=== PATIENT | female | born 1985 | race Caucasian/White ===

== ENCOUNTER 2021-11-26 09:23 | Outpatient (CLI) | payer OTHER, SELFPAY ==
--- NOTE | 2021-11-26 14:09 | P.LACCB_ITS ---
Consult Note - Mom Date of Visit Date of visit: 11/26/21 child welfare consultant: Mitzi Kramer Visit Code: Visit Patient's Information Phone number: [phone] : 3 Para: 3 Mother's Medical History: GHTN Delivery Information Delivery type: Vaginal Weeks Gestation: 37.1 Gestational Age: SGA Weight: 1.871 kg Baby's Information Baby's Age at Visit: 7 weeks Baby's Provider or Clinic: Dr. Lennon Jaundice: No Reason for Consult Reason for Consult: concern for clicking with latch Past Experience Past Experience: Yes (nursed her two older children) Current Frequency of Day Feedings: every 2 - 3 hours around the clock Both Breasts: Yes Suck: better with the nipple shield Latch: fairly wide Pumping Pumping: Yes (mom is pumping after every feeding) Quantity Pumped: 2 - 4 oz total each time Supplementing EMB Supplement: Yes (POC are supplementing with about 70 ml fortified EBM BID) Formula Supplement: No Baby Elimination Number of Wet Diapers a Day: 6 or more Number of BM a Day: at least 3 Breast/Nipple Condition Breast Information: WNL Engorgement: No Maternal Nipple Condition - Left: Common Nipple Maternal Nipple Condition - Right: Common Nipple Sore Nipples: No Onsite Pre-Feed weight: 3.312 kg Post-Feed weight: 3.38 kg Milk Transferred (mL): 68 Pre-Nursing Left Nipple: Within Normal Limits Pre-Nursing Right Nipple: Within Normal Limits Post-Nursing Left Nipple: Within Normal Limits Post-Nursing Right Nipple: Within Normal Limits Assessments/Interventions Assessments/Interventions: Met with mom and this now 7 week old ex early term baby for consult.? Mom is concerned about the latch b/c baby makes a clicking sound usually throughout the feeding (also makes this sound with the bottle).? She was induced at 37 weeks d/t dx of IUGR and baby spent a few weeks in the special care nursery at [facility].? Mom states she had been nursing every 2 - 3 hours with nipple shield and supplementing with 70 ml fortified breast milk after every feeding up until about 7 - 10 days ago.? Baby is now nursing without the shield and POC are only supplementing BID with fortified breast milk.? Mom states once baby started latching without the shield she seemed to get more milk b/c they would offer the EBM and baby either refused it or spit it up.? Breasts WNL- symmetrical with rounded lower quadrants, intramammary distance is WNL.? Nipples are everted and don't flatten or retract with compression; no damage noted. Baby has gained 35 grams/day since her last visit on 11/13/21 and is between the 2nd and 5th percentile on the growth chart.? Per mom she has equal ROM when turning her head and moving her extremities.? She denies any trauma like a cephalohematoma or caput.? Baby has a fairly strong suck on a finger; her tongue extends past the gum line and has good lateral movement.? Her lower frenulum may be a little anterior? Mom latched baby to both sides and the latch appeared deep, mom was comfortable.? Clicking was heard after a few suckles but mom denied any pain.? She does have a faster let-down, but the clicking didn't improve/resolve when she tried to express a little milk off before latching.? Also no improvement when mom tried different positions.? Baby nursed about 20 minutes and transferred 68 ml.? As mom was getting her dressed she started to act hungry again so mom put her back on the left side and baby nursed 5 - 7 more minutes but was not re-weighed. Plan: 1. Continue to nurse ALD, offering both sides at each feeding- don't let her go past three hours for now (baby has a 2 month WCC next week and this can be re- evaluated at that time).? Suggested that as baby is transferring the same amount she takes from a bottle, her weight gain has been WNL, and mom is not in pain there's really no need to worry about the clicking.? 2. Continue to supplement with fortified EBM BID- can also be re-evaluated at PCP visit. 3. OK to stop pumping after every feeding.? Suggested she reduce by one pumping session every 2 - 3 days until she's pumping 2 - 3 times/day. 4. Will f/u with her at [facility] on 12/01/21. ?
== END 2021-11-26 09:24 | disposition home or self-care (01) ==
PROVIDERS: PCP Family Medicine; Visit Provider Family Medicine
DX: Z39.1 Encounter for care and examination of lactating mother (principal)
CPT/HCPCS: 99211

== ENCOUNTER 2023-07-01 05:48 | Inpatient (IN) | payer OTHER, SELFPAY ==
[2023-07-01] VITALS (22 sets, daily range): BP systolic 121–161; BP diastolic 76–92; PULSE 64–86; RESP 16–18; TEMP 36.4–36.7; BMI 34.9
[2023-07-01] MEDS: AMPICILLIN 2 GM in 0.9 % SODIUM CHLORIDE Mini-bag 100 ML IVPB (06:09)
[2023-07-01 06:56] LABS: Basophils Absolute Auto 0.01 K/uL (0.00-0.30); Basophils Percent Auto 0.1 % (0.0-3.0); Eosinophils Absolute Auto 0.04 K/uL (0.00-0.50); Eosinophils Percent Auto 0.4 % (0.0-7.0); Hematocrit 37.5 % (33.0-51.0); Hemoglobin* 12.5 gm/dL (12.0-16.0); Immature Granulocytes Abs Auto 0.03 K/uL (0.00-0.30); Immature Granulocytes Pct Auto 0.3 %; Lymphocytes Percent Auto 13.4 % (20-44); Mean Corpuscular HGB Conc 33 gm/dL (32-36); Mean Corpuscular Hemoglobin 33 pg (26-34); Mean Corpuscular Volume 100 fL (80-100); Monocytes Percent Auto 4.3 % (0.0-11.0); Neutrophils Percent Auto 81.5 % (42.0-72.0); Platelet Count* 142 K/uL (140-440); Red Blood Count 3.77 m/uL (4.00-5.20); White Blood Count* 9.63 K/uL (4.50-11.00)
[2023-07-01 07:11] LABS: Slide Review Reflex No
[2023-07-01] MEDS: LACTATED RINGERS 1000 ML 1,000 ML 125 ML IV (09:25)
[2023-07-01] MEDS: OXYTOCIN 30 unit/500 ML in NS 30 UNIT/500 ML BAG IVPB (09:26)
[2023-07-01] MEDS: AMPICILLIN 1 GM in 0.9 % SODIUM CHLORIDE Mini-bag 100 ML IVPB ×2 (10:44→14:50)
--- NOTE | 2023-07-01 14:11 | P.OBHP_ITS ---
OB - H&P: HPI Labor/Induction History of Present Illness Time Seen by Provider: 06:50 Date Seen: 07/01/23 Chief Complaint: The patient is a 38 year old 5 para 3 at 39w1d weeks gestation by 6wk US not c/w LMP, who presents for induction due to chronic stage 1 hypertension. Chief complaint: IOL- Medical : 5 Para: 3 Indications for induction: maternal hypertension Narrative: The patient is a 38 year old 5 para 3 at 39w1d weeks gestation by 6wk US not c/w LMP, who presents for induction due to chronic stage 1 hypertension. She has been asymptomatic. BP's at home have been 128/78, 133/78, 138/65, 116/65. BP's in clinic this have been 115-135/77-86, with majority <130 and about 1/2 dbp low 80's. She did have one BP 130's/80's prior to 20wks and baseline preeclamptic labs were drawn and wnl. Hx gestational htn in prior . BPP yesterday was 8/8, cephalic position and EFW 37%. She has hx prior IUGR baby. She is feeling good FM. +Denis Damon, no ctxs. no LOF. No bleeding. no abdominal pain, headaches or vision changes. History of Present Dating criteria: based on 1st trimester US only care: good care Ultrasounds: normal 1st trimester US, normal mid trimester US and other (EFW 06/30/23 = 37%, cephalic) Labs Blood type: A (+) positive Rubella: immune RPR/VDLR: nonreactive GBS status: positive HBsAG: negative Meds Home Medications and Allergies Home Medications ?Medication ?Instructions ?Recorded ?Confirmed ?Type aspirin 81 mg tablet,delayed 81 mg PO DAILY 07/01/23 07/01/23 History release (Adult Low Dose Aspirin) ferrous sulfate 325 mg (65 mg 325 mg PO DAILY 07/01/23 07/01/23 History iron) tablet,delayed release vit no.95-ferrous 1 tab PO DAILY 07/01/23 07/01/23 History fumarate 28 mg-folic acid 800 mcg tablet () Allergies Allergy/AdvReac Type Severity Reaction Status Date / Time No Known Drug Allergies Allergy Verified 07/01/23 06:01 OB - H&P: Exam Physical Exam: Vital signs: Temp Pulse Resp BP 98.1 F 76 16 143/83 H 07/01/23 14:03 07/01/23 14:03 07/01/23 14:03 07/01/23 14:03 Constitutional: Constitutional: no acute distress and cooperative Routine HEENT Exam: Head: Present normal inspection Eye: Present normal appearance ENT: Present mucous membranes moist Routine Respiratory Exam: Respiratory: Present CTA bilaterally Routine Cardiovascular Exam: Cardiovascular: RRR Detailed Labor and Delivery Exam: Patient Gravid: Yes Comments: cervix last night at clinic 3.5/50%/-2 Fetus (Single): Heart Rate Baseline: 150 Monitor Accelerations: Present Monitor Decelerations: None Property Management Assistant Variability: Moderate (6-25) Routine Extremities Exam: Extremities: Present pedal edema (1+ in feet) OB - Results Labs Labs: Short CBC 07/01/23 Range/Units 06:05 WBC 9.63 (4.50-11.00) K/uL Hgb 12.5 (12.0-16.0) gm/dL Hct 37.5 (33.0-51.0) % Plt Count 142 (140-440) K/uL OB - Problem Based A/P Additional Plan (1) Chronic hypertension affecting : Status: Acute (2) Term : Status: Acute Plan Known GBS positive. Will abx started on admit. Will start pitocin after abx on board for at least 3+ hours. plan discussed with pt, and RN. They are in agreement with plan Delivery/Labor/Induction Plan Plan: induction Induction method: per pitocin protocol
--- NOTE | 2023-07-01 14:40 | P.OBPN_ITS ---
Subjective Time Seen by Provider: 13:55 Date Seen: 07/01/23 Narrative: pt is feeling mild ctxs. not painful. she does not have any ?'s or concerns Objective Vital Signs: Last Vital Signs Temp 98.1 F 07/01/23 14:03 Pulse 76 07/01/23 14:03 Resp 16 07/01/23 14:03 BP 143/83 H 07/01/23 14:03 Pelvic Exam Dilation (cm): 4.5 Effacement (%): 60 Station: -2 Comments: engaged Contractions Monitor mode: External Contraction Frequency: q4-5min Pitocin Rate (mU/min): 4 Assessment Assessment: induction ongoing Station: -2 Amniotic Membrane Status: AROM (AROM at 1357 with clear fluid) Status: Category l Heart Rate Baseline: 130 [facility] Variability: Moderate (6-25) Monitor Accelerations: Present Monitor Decelerations: None Plan Plan: discussed AROM and pt in agreement. AROM performed with clear fluid. continue pitocin and expectant management. is on abx for GBS and already received adequate abxs
--- NOTE | 2023-07-01 16:36 | W.PM.VAGDEL1 ---
Procedure Delivery date: 07/01/23 Procedure Done: Global Procedure Details: The patient is a 38 year-old admitted on 07/01/23 at 39 Weeks, 1 Days gestation for induction due to stage 1 chronic hypertension.? Cervical exam on admission was 3.5 cm/50 % effaced/-2 station with membranes intactin vertex presentation.? Contractions were not felt.? heart rate demonstrated baseline 150 bpm with moderate variability, + accelerations, - decelerations; a category 1 tracing.? AROM occurred at 1357 with clear fluid. Pt was known GBS positive so antibiotics started on admit. Pitocin started approximately 3+ hours later. ? Labor Analgesia:? None ? Pitocin:? Yes ? Labor onset:? 1430 ? Complete:? 1608 ? Pushing:? 1608 ? heart tones during second stage were 140's, moderate variability, variables present. ? At 1612 a viable female infant delivered in OP vertex presentation over intact perineum via spontaneous vaginal delivery.?There was nuchal cord x 1, delivered through. Infant was placed on maternal abdomen.?Nose and mouth were bulb suctioned. Cord was clamped and cut after a 60 second delay.?? Infant weight pending.? 8 at 1 minute and 9 at 5 minutes.? Shoulder dystocia: no.? Nuchal cord: yes. ? Placenta delivered spontaneously and complete at 1620 with a 3 vessel cord. ? Mother and infant were stable after delivery. ? Lacerations:? none. ? Blood loss: 50 mL. Blood loss measurement type: QBL ? Sponge and needles counts are correct. Events: Chronic Hypertension Intrapartal Events: Labor Induction and Precipitous Labor <3 Hrs Delivery monitor: external FHT Route of delivery: Laceration description: None Anesthesia type: None [place] Infant Gender: Female presentation: vertex Placental Delivery Description: Spontaneous Cord Description: 3 Vessels
[2023-07-01] MEDS: IBUPROFEN 600 MG TABLET PO (19:47)
[2023-07-01] MEDS: DOCUSATE SODIUM 100 MG CAPSULE PO (21:11)
[2023-07-02] MEDS: ACETAMINOPHEN 500 MG TABLET 1000 MG PO (00:01)
[2023-07-02 05:18] VITALS: BP 149/92; PULSE 71; RESP 16; TEMP 36.2
[2023-07-02] MEDS: IBUPROFEN 600 MG TABLET PO (05:19)
[2023-07-02 05:49] VITALS: BP 122/73
[2023-07-02 07:10] LABS: Hemoglobin* 11.6 gm/dL (12.0-16.0)
--- NOTE | 2023-07-02 07:52 | PM.OBPNVD1 ---
OB - PN:Subj Subjective Date Seen: 07/02/23 Interval history: [place], is a pp day #1 after , induced for chronic HTN. She was started on labetalol 100 mg BID last evening. BPs have been well controlled, no signs/symptoms of preeclampsia. Is hoping for d/c later today if things remain stable. Patient comments OB post-: no complaints, pain well controlled and tolerating diet infant status: and doing well feeding status: exclusively OB - PN: Obj Exam Physical Exam: Vital signs: Temp Pulse Resp BP 97.1 F L 71 16 122/73 07/02/23 05:18 07/02/23 05:18 07/02/23 05:18 07/02/23 05:49 Constitutional: Constitutional: no acute distress Routine Abdominal Exam: Fundus: Present firm Comments: at umbilicus Routine Neurological Exam: Neurological: Present alert and oriented X3 Routine Psychiatric Exam: Psychiatric: Present normal affect and normal thought process OB - PN: Obj Data Labs Labs: Laboratory Results - last 24 hr 07/02/23 06:42 Hgb 11.6 L OB - PN: A/P Delivery Assessment and Plan (1) Chronic hypertension affecting : Status: Acute Assessment and Plan: on labetalol. Will stay at least through this evening, if BPs remain well controlled could potentially d/c today. (2) Term : Status: Acute Assessment and Plan: s/p Plan day: 1 Plan: routine care
[2023-07-02] MEDS: LABETALOL HCL 100 MG TABLET PO (09:23)
[2023-07-02] MEDS: DOCUSATE SODIUM 100 MG CAPSULE PO (09:24)
[2023-07-02 09:29] VITALS: BP 129/89; PULSE 78; RESP 20; O2SAT 98
[2023-07-02 13:38] VITALS: BP 118/64; PULSE 77; RESP 16; TEMP 36.9; O2SAT 96
--- NOTE | 2023-07-02 17:21 | P.DS_ITS ---
DS: Providers Provider Date Seen: 07/02/23 Date of admission: 07/01/23 05:48 Primary care physician: Mariluz Lennon DO Admitting Clinician: Mariluz Lennon DO Attending Physician on discharge: Mariluz Lennon DO Date of Discharge: 07/02/23 DS: Diagnosis Discharge Diagnosis (1) Chronic hypertension affecting : Status: Acute Problem details: started on labetalol (2) (normal spontaneous vaginal delivery): Status: Acute Exam Const: Vital Signs, click to edit/add: Vital Signs - 24 hr 07/01/23 17:36 07/01/23 17:51 07/01/23 18:06 Temperature Pulse Rate 74 66 67 Pulse Rate [Blood Pressure Cuff] Respiratory Rate Blood Pressure 148/87 H 139/81 133/77 Blood Pressure [Le ft Arm] Pulse Oximetry Oxygen Delivery Me thod 07/01/23 18:21 07/01/23 19:39 07/01/23 20:33 Temperature 98.0 F Pulse Rate 74 Pulse Rate [Blood Pressure Cuff] 71 Respiratory Rate 16 Blood Pressure 139/84 Blood Pressure [Le ft Arm] 149/84 H 146/85 H Pulse Oximetry Oxygen Delivery Me thod 07/01/23 23:48 07/02/23 05:18 07/02/23 05:49 Temperature 97.6 F 97.1 F L Pulse Rate Pulse Rate [Blood Pressure Cuff] 76 71 Respiratory Rate 16 16 Blood Pressure Blood Pressure [Le ft Arm] 128/83 149/92 H 122/73 Pulse Oximetry Oxygen Delivery Me thod 07/02/23 09:29 07/02/23 13:38 Temperature 98.4 F Pulse Rate Pulse Rate [Blood Pressure Cuff] 78 77 Respiratory Rate 20 16 Blood Pressure Blood Pressure [Le ft Arm] 129/89 118/64 Pulse Oximetry 98 96 Oxygen Delivery Me thod Room Air Room Air OB - DS: Summary Hospital Course Hospital Course: The patient is a 38 year old G 4 P 4 at 39+1 weeks gestation that was admitted to the Center on 07/01/23 for IOL for chronic hypertension. She had an uncomplicated vaginal delivery. She delivered a viable female . She is breast feeding. the patient has done well. She was started on labetalol 100 mg BID after delivery. BP reviewed and has been normal throughout the day today. She has a BP cuff at home and is comfortable checking at home. Peripartum Data delivery method: Vaginal complications: none Infant Gender: Female Infant Discharge Plan: Home Status at Discharge Functional status at discharge: independent ambulation Overall status at discharge: patient is progressing back to baseline Time Spent with Patient Time attestation: Total time spent providing and/or coordinating discharge services: Time spent: Less than 30 minutes Discharge Plan Discharge Disposition: Home, Self-Care Date of Admission: 07/01/23 05:48 Attending Provider on Discharge: Sherry Roldan Primary Care Provider: Mariluz Lennon Condition: Improved Anticipated Discharge Date/Time: 07/02/23 17:24 Discharge Medications: New labetalol 100 mg Tablet 100 mg PO BID Qty: 60 0RF Continued PNV cmb#95-ferrous fumarate-FA [] 28 mg iron- 800 mcg tablet 1 tab PO DAILY ferrous sulfate 325 mg (65 mg iron) tablet,delayed release (DR/EC) 325 mg PO DAILY Discontinued aspirin [Adult Low Dose Aspirin] 81 mg tablet,delayed release (DR/EC) 81 mg PO DAILY Discharge Orders: Discharge Order (Routine); Ordered 07/02/23 Ordered By: Sherry Roldan Patient Education: OB Vaginal/Breast Feeding Activity Level: No Restrictions Activity Detail: nothing per vagina x 6 weeks Discharge Diet: Regular Follow Up Appointments: Mariluz Lennon DO [Primary Care Provider] - (Wednesday 07/05 9:10 AM) Forms: [employer] Info Instructions
[2023-07-02 17:25] VITALS: BP 131/83; PULSE 79; RESP 16; TEMP 36.6; O2SAT 97
[2023-07-02 18:07] LABS: Rapid Plasma Reagin (RPR) Non Reactive (Non Reactive)
== END 2023-07-02 19:47 | disposition home or self-care (01) | DRG 807 ==
PROVIDERS: Admitting Provider Family Medicine; PCP Family Medicine; Visit Provider Family Medicine
DX: O16.4 Unspecified maternal hypertension, complicating childbirth (principal); Z37.0 Single live birth; Z3A.39 39 weeks gestation of pregnancy; O99.824 Streptococcus B carrier state complicating childbirth
CPT/HCPCS: 36415; 85018; 85025; 86592; 86850; 86900; 86901; G0463; A9270; J0290; J7120